=== PATIENT | female | born 1985 | race Caucasian/White ===

== ENCOUNTER → 2016-06-18 | Outpatient (CLI) | payer BC ==
[~2016-06-18] MED LIST: LEVO25TA5 PO; PREN1TAB29
[2016-06-18 16:33] LABS: HEMATOCRIT 32.2 % (37-47)
[2016-06-18 18:23] LABS: GTGD 50 Grams
[2016-06-18 18:24] LABS: URINE APPEARANCE CLEAR (CLEAR); URINE BILIRUBIN NEG (NEG); URINE COLOR YELLOW; URINE EPITHELIAL CELL AUTO 20-30 /lpf (0-5); URINE NITRITE NEG (NEG); UROBILINOGEN NEG (NEG)
[2016-06-18 18:26] LABS: MANUAL MICROSCOPIC REQUIRED? NO; REVIEW REQ? NO
== END | disposition home or self-care (01) ==
LOC: C.LAB1850 15:55
PROVIDERS: ATTEND Obstetrics & Gynecology
DX: Z34.02 Encounter for supervision of normal first pregnancy, second trimester (principal)

== ENCOUNTER → 2016-07-05 | Outpatient (CLI) | payer BC ==
[2016-07-05 19:07] LABS: THYROID STIMULATING HORMONE 1.34 uIu/ml (0.300-4.500)
== END | disposition home or self-care (01) ==
LOC: C.LAB1850 16:47
PROVIDERS: ATTEND Obstetrics & Gynecology
DX: O99.280 Endocrine, nutritional and metabolic diseases complicating pregnancy, unspecified trimester (principal); Z34.93 Encounter for supervision of normal pregnancy, unspecified, third trimester

== ENCOUNTER → 2016-08-15 | Outpatient (CLI) | payer BC | END | disposition home or self-care (01) | LOC: C.LABSPEC 17:30 | PROVIDERS: ATTEND Obstetrics & Gynecology | DX: Z34.93 Encounter for supervision of normal pregnancy, unspecified, third trimester (principal) ==

== ENCOUNTER 2016-09-04 00:45 | Inpatient (IN) | payer BC ==
[~2016-09-04] VITALS: Ht 167.6 cm; Wt 86.4 kg
[2016-09-04 01:33] VITALS: Ht 167.6 cm; Wt 86.4 kg
[2016-09-04] MEDS ORDERED: LEVO25TA5 PO (01:33)
[2016-09-04] MEDS ORDERED: PREN1TAB29 (01:33)
[2016-09-04] MEDS ORDERED: LACTATED RINGER'S 1000ML 1,000 ML IV ONE (04:14)
[2016-09-04] MEDS ORDERED: LACTATED RINGER'S 1000ML 1,000 ML IV PRN (07:04)
[2016-09-04] MEDS ORDERED: LACTATED RINGER'S 1000ML 1,000 ML IV SCH (07:04)
[2016-09-04 07:26] LABS: MEAN CELL VOLUME 87.4 fL (80-100); MEAN CORPUSCULAR HEMOGLOBIN 30.6 pg (25-34); MEAN PLATELET VOLUME 11.8 fL (7.4-10.4); PLATELET COUNT 132 K/uL (130-400); RED BLOOD COUNT 3.66 M/uL (4.2-5.4); WHITE BLOOD COUNT 13.11 K/uL (4.8-10.8)
[2016-09-04] MEDS ORDERED: EpHEDrine SULFATE INJ 50 MG/ML AMP ONE (07:28)
[2016-09-04] MEDS ORDERED: BUPIVACAINE 0.25% 30 ML VIAL ONE (07:28)
[2016-09-04] MEDS ORDERED: FENTANYL CITRATE INJ 50 MCG/1 ML 2 ML VIAL ONE (07:28)
[2016-09-04] MEDS ORDERED: FENTANYL 2MCG/ML ROPIV 1.25MG/ML 100ML BAG EPI ONE (07:29)
[2016-09-04] MEDS ORDERED: LACTATED RINGER'S 1000ML 500 ML IV PRN ×2 (08:13→08:25)
[2016-09-04] MEDS ORDERED: OXYTOCIN 30 UNITS/500ML NSS IV PRN ×2 (08:15→15:30)
--- NOTE | 2016-09-04 08:23 | Medical Student: [facility] ---
Med Student History & Physical Date of Service Sep 04, 2016. Chief Complaint "I think I'm in labor" History of Present Illness Source: patient Heather is a 31 year old with an EDC of 09/10/2016 dated by LMP, confirmed by first trimester ultrasound. was uncomplicated. She states that she was feeling intermittent contractions since 09/02/2016 but the contractions became consistent, every 10 minutes, beginning at 2000 last night. She arrived to L&D at 0030 today. She denies any fluid leakage or vaginal bleeding but reported some vaginal spotting beginning 09/02/16 that subsided in a few hours. She feels movement. This morning she states her contractions are every 4-6 minutes, 1 minute in duration and an 8/10 on the pain scale. OB History Labs from this : 01/25/2016: Urine Culture - negative UA: WNL 02/01/2016: Chlamydia and GC negative RPR non reactive HIV negative Type and screen: O+, negative antibodies Rubella Immune HBsAg Negative H&H = 34.7%, 11.9 g/dl MCV: 87.4 fl Plts: 199,000 TSH = 2.070 Free T4 = 1.16 mg/dl 03/30/2016: 50g 1 hour GTT = 100 mg/dl Free T4 = 1.09 mg/dL TSH = 1.550 06/18/2016: Urine Culture - neg UA - 1+ bacteria, otherwise WNL H&H: 32.2%, 11.2 g/dL 50g 1hr GTT = 116 mg/dL 07/05/2016: TSH = 1.340 Free T4 = 0.97 ng/dL 08/15/2016: GBS negative BEEF BREAKER History Menarche: 12 LMP: 12/05/15 Period Frequency: 26 day cycles STD: none Abnormal PAPs: none Past Medical History Subclinical hypothyroidism, otherwise unremarkable. She has had TSH levels checked yearly since she was 16 and her labs have always been upper limit of normal but her family physician placed her on levothyroxine 25 mcg after her positive test. Past Surgical History None. Family History Marcela Thyroiditis - Mother Diabetes - Father Breast cancer - Paternal Aunt Colon cancer - Paternal Grandmother Otherwise negative for gynecologic malignancies. Social History Smoking Status: Never Smoker Smokeless Tobacco Use: No Alcohol Use: none Drug Use: none Marital Status: Housing status: lives with significant other Occupational Status: employed (teacher) Allergies Coded Allergies: No Known Allergies (Unverified , 09/04/16) Home Medications Levothyroxine Sodium (Levothyroxine Sodium), 1 TAB PO DAILY Vit W/ Ferrous Fumara () Review of Systems Constitutional: No chills, No fever Eyes: No diplopia, No worsening of vision ENT: No sore throat, No trouble swallowing Respiratory: No cough, No shortness of breath Cardiovascular: No chest pain, No edema, No palpitations Abdomen: + pain (with contractions), No nausea, No vomiting Musculoskeletal: No calf pain, No joint pain Genitourinary - Female: + urinary frequency, No dysuria, No urinary urgency Neurologic: No numbness/tingling, No weakness Psychiatric: No anxiety, No depression symptoms Endocrine: + fatigue, No excessive thirst, No excessive urination Hematologic / Lymphatic: No abnormal bleeding/bruising, No clotting problems Integumentary: No new/changing skin lesions, No rash Allergic / Immunologic: No frequent infections, No poor healing Physical Exam Vital Signs: T: 36.7 HR: 86bpm BP: 118/63 mmHg RR: 18 General Appearance: WD/WN, no apparent distress Respiratory/Chest: lungs clear, normal breath sounds, no respiratory distress, no accessory muscle use Cardiovascular: regular rate, rhythm, no gallop, no murmur, normal peripheral pulses Abdomen / GI: non tender, + pertinent finding (gravid) Genitourinary - Female: + pertinent finding (Cervix: 4 cm dilated, 70% effaced , -2 station, soft and posterior) Extremities: no calf tenderness, + pedal edema (trace bilateral) Neurologic/Psych: alert, normal mood/affect, oriented x 3 Monitoring External Monitor: Category 1 tracing. Baseline FHR: 150 Moderate variability Accelerations to 165. No decelerations. Tocodynamometer: Contractions q 4-5 minutes, 70-110 seconds duration. Laboratory Results 09/04/16 07:15 Test 09/04/16 07:15 Red Blood Count 3.66 M/uL (4.2-5.4) Mean Corpuscular Volume 87.4 fL (80-100) Mean Corpuscular Hemoglobin 30.6 pg (25-34) Mean Corpuscular Hemoglobin Concent 35.0 g/dl (32-36) RDW Standard Deviation 45.0 fL (36.4-46.3) RDW Coefficient of Variation 14.0 % (11.5-14.5) Mean Platelet Volume 11.8 fL (7.4-10.4) Assessment and Plan Assessment: Patient is a 31 year old at 39 1/7 weeks gestation who presented to the floor in labor. Category 1 Fetus. Plan: Continuous external monitoring, recording every 30 minutes Continue tocodynamometer, recording every 30 minutes. Vital signs every hour. Consult anesthesia for epidural.
[2016-09-04] MEDS ORDERED: ONDANSETRON INJ 2 MG/ML 2 ML VIAL IV PRN (08:30)
[2016-09-04] MEDS ORDERED: DiphenhydrAMINE HCL 50 MG/ML VIAL IV PRN (08:30)
[2016-09-04] MEDS ORDERED: NALOXONE HCL INJ 0.4 MG/1 ML VIAL/CARP IV PRN (08:30)
[2016-09-04] MEDS ORDERED: NALBUPHINE HCL INJ 10 MG/ML AMP IV PRN (08:30)
[2016-09-04] MEDS ORDERED: FENTANYL 2MCG/ML ROPIV 1.25MG/ML 100ML BAG EPI PRN (08:30)
[2016-09-04] MEDS ORDERED: EpHEDrine SULFATE INJ 50 MG/ML AMP IV PRN (08:30)
[2016-09-04] MEDS ORDERED: CALCIUM CARBONATE 500 MG CHEWABLE PO PRN (11:15)
[2016-09-04] MEDS ORDERED: ACETAMINOPHEN/CODEINE 300/30MG TAB PO PRN ×2 (15:30)
[2016-09-04] MEDS ORDERED: LANOLIN OINT EXT PRN ×2 (15:30)
[2016-09-04] MEDS ORDERED: ACETAMINOPHEN 325 MG TAB PO PRN (15:30)
[2016-09-04] MEDS ORDERED: BENZOCAINE 20% AER SPR 82.5 GM CAN EXT PRN (15:30)
[2016-09-04] MEDS ORDERED: HYDROCORTISONE ACETATE 25 MG SUPP PR PRN (15:30)
[2016-09-04] MEDS ORDERED: DIPHTHERIA/TETANUS/PERTUSSIS 0.5 ML SYR/VIAL IM. ONE (15:30)
[2016-09-04] MEDS ORDERED: SUPERCREAM 0.870 % 15GM JAR EXT PRN (15:30)
--- NOTE | 2016-09-04 15:41 | Medical Student: [facility] ---
Medical Student Delivery Note PROCEDURE: Normal Spontaneous Vaginal Delivery SURGEON: Dr. Tang ANESTHESIA: Epidural EBL: 300cc FINDINGS:Viable female with APGARs of 8 and 9. Baby delivered in MIRIAM position over an second degree perineal laceration. Cord blood and gasses obtained. Placenta delivered spontaneously, intact, with a 3 vessel cord. Laceration repaired with 2-0 and 4-0 Vicryl in a routine fashion. LABOR NOTE: The patient is a 31-year-old 1 para 0 EDC of September 10 2016 at 39 weeks 1 day gestational age who presented to labor and delivery September 04 at 0100 in latent first stage labor. The patient states her contractions began earlier on the 03 of September and increased in intensity throughout the day. She denied rupture of membranes. She reports vaginal spotting beginning on the 02 of September but no other bleeding. The patient's course remarkable for hypothyroidism treated with levothyroxine 25 mcg. She received routine care. The patient's blood type is O positive, antibody negative, Rubella immune, hepatitis B negative. She declined a quad screen. She had a normal 1-hour Glucola x2 and a negative third trimester beta strep culture. Upon admission at 0100 the patient was 1 cm dilated, 75% effaced and -2 station. She progressed to active first stage labor with contractions. She received an epidural, had an amniotomy and progressed to full dilatation, 100 % effacement, +1 station and began her second stage of labor. Fetus was category 1. The patient pushed for a little over an hour delivering a viable female in MIRIAM position over a second degree perineal laceration. There was no nuchal cord. Infant as placed on maternal abdomen for drying. The nose and mouth were bulb suctioned. Cord clamping was delayed 60 seconds. Cord was then clamped and cut. Cord blood samples were obtained. Placenta was delivered spontaneously, intact with 3 vessel cord. Inspection of the perineum showed second degree perineal laceration. This was repaired with 2-0 vicryl and 4-0 Vicryl suture. Estimated blood loss 300 cc. Sponge and needle count was correct. Cord gasses obtained. Mother and baby doing well at the end of delivery. Apgars 8 and 9. Weight pending.
[2016-09-04] MEDS: IBUPROFEN 600 MG TAB PO PRN (15:48)
--- NOTE | 2016-09-04 16:29 | DELIVERY SUMMARY ---
DATE OF OPERATION: 09/04/2016 FINDINGS: Viable female with Apgars of 8 and 9. Baby delivered spontaneously over midline second degree laceration. Cord gases and cord blood samples were obtained. Placenta delivered spontaneously. Laceration repair with 4-0 and 2-0 Vicryl in a routine fashion. ESTIMATED BLOOD LOSS: 300 mL. LABOR NOTE: The patient is a 31-year-old 1, para 0 at 39+ weeks gestational age who presented to labor and delivery on the day of admission in early labor. The patient was observed on labor and delivery with cervical change and was admitted. The patient had had a benign course. Upon admission the patient was 3 cm dilated, with a category 2 tracing and anesthesia was consulted. An epidural was placed. Shortly thereafter the delivering physician assumed care for the patient. At that time the patient was 4 cm dilated, 100%, and -1 station. Artificial rupture of membranes for clear fluid. Over the next 2 hours, the patient made minimal cervical change and as such Pitocin was initiated per induction protocol, an intrauterine pressure catheter was also placed to monitor contractions. The patient progressed to full dilatation and began her second stage, she pushed for about an hour and a half delivering a viable female infant. Cord was clamped and cut. Cord gases, cord blood samples obtained. Placenta delivered spontaneously. Midline laceration was repaired with 4-0 and 2-0 Vicryl in a routine fashion. Estimated blood loss was 300 mL. Sponge and needle counts were correct. I attest to the content of the Intraoperative Record and any orders documented therein. Any exceptio ns are noted below.
--- NOTE | 2016-09-04 17:30 | Anesthesia Procedure Note ---
Anesthesia Epidural Removal Nt Date & Time Sep 04, 2016 at 17:29 Vital Signs Pain Intensity: 4.0 Notes Mental Status: alert / awake / arousable, participated in evaluation Nausea / Vomiting: adequately controlled Pain: adequately controlled Airway Patency, RR, SpO2: stable & adequate BP & HR: stable & adequate Hydration State: stable & adequate Neuraxial Anesthesia: was administered Anesthetic Complications: no major complications apparent, pt satisfied with anesthetic care Epidural: removed without complications, with tip intact
[2016-09-04] MEDS: LOPERAMIDE HCL 2 MG CAP PO PRN (17:39)
[2016-09-04 19:45] VITALS: BP 108/71; PULSE 66; TEMP 36.6
[2016-09-04] MEDS: DOCUSATE SODIUM 100 MG CAP PO SCH (20:33)
[2016-09-05 00:10] VITALS: BP 120/79; PULSE 76; TEMP 36.4
[2016-09-05 04:05] VITALS: BP 98/64; PULSE 73; TEMP 36.6
--- NOTE | 2016-09-05 06:57 | Medical Student: [facility] ---
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 Subjective conversation w/ patient Ambulation: ambulating normally Voiding: no voiding problems Passing Gas: Yes Diet Tolerance: Regular Diet Lochia: Moderate Feeding Type: Breast Feeding Pain: 4/10, controlled with medication Notes: No acute events overnight. Review of Systems Constitutional: No chills, No fever Respiratory: No cough, No shortness of breath Cardiac: No chest pain, No edema, No palpitations Breast: No breast pain, No problem reported Abdomen: + diarrhea, + pain (mild), No nausea, No vomiting Female : No dysuria, No urinary frequency Objective Vital Signs Date Time Temp Pulse Resp B/P Pulse Ox O2 Delivery O2 Flow Rate FiO2 09/05/16 04:05 36.6 73 16 98/64 Room Air 09/05/16 00:10 36.4 76 16 120/79 Room Air 09/05/16 00:10 Room Air 09/04/16 19:45 36.6 66 16 108/71 Room Air Physical Exam General Appearance: WELL-APPEARING, NO APPARENT DISTRESS Respiratory/Chest: normal breath sounds, no respiratory distress, no accessory muscle use Cardiovascular: regular rate, rhythm, no edema, no gallop, no murmur Abdomen: normal bowel sounds, non tender, soft Fundus: Firm, Tender, Relation to Umbilicus (at umbilicus) Extremities: non-tender, no calf tenderness, + pedal edema (bilateral, trace, improving) Laboratory Results Last 24 Hours Test 09/04/16 07:15 09/05/16 04:44 White Blood Count 13.11 K/uL Red Blood Count 3.66 M/uL Hemoglobin 11.2 g/dL Hematocrit 32.0 % Mean Corpuscular Volume 87.4 fL Mean Corpuscular Hemoglobin 30.6 pg Mean Corpuscular Hemoglobin Concent 35.0 g/dl RDW Standard Deviation 45.0 fL RDW Coefficient of Variation 14.0 % Platelet Count 132 K/uL Mean Platelet Volume 11.8 fL Medications Current Inpatient Medications Medications (Trade) Dose Ordered Sig/Hilda Route Start Time Stop Time Status Last Admin Dose Admin Lactated Ringer's 1,000 ml @ 125 mls/hr Q8H IV 09/04/16 07:04 09/06/16 07:03 Lactated Ringer's (Lr 1000ml) 1,000 ml @ 999 mls/hr Q1H1M PRN IV 09/04/16 07:04 10/04/16 07:03 09/04/16 07:20 999 MLS/HR Oxytocin 30 units 30 units UD PRN IV 09/04/16 08:15 10/04/16 08:14 09/04/16 08:57 30 UNITS Lactated Ringer's (Lr 1000ml) 500 ml @ 999 mls/hr Q31M PRN IV 09/04/16 08:13 10/04/16 08:12 Fentanyl/ Ropivacaine (Fentanyl 2MCG/ Ml/Ropivacaine 1.25MG/ML) 100 ml PRN PRN EPI 09/04/16 08:30 09/05/16 08:29 Naloxone HCl 0.1 mg 0.1 mg UD PRN IV 09/04/16 08:30 09/05/16 08:29 Lactated Ringer's (Lr 1000ml) 500 ml @ 999 mls/hr Q31M PRN IV 09/04/16 08:25 09/05/16 08:24 Ephedrine Sulfate (EpHEDrine SULFATE INJ) 10 mg Q5M PRN IV 09/04/16 08:30 09/05/16 08:29 Diphenhydramine HCl (Benadryl Inj) 25 mg Q6H PRN IV 09/04/16 08:30 09/05/16 08:29 Nalbuphine HCl (Nubain Inj) 5 mg Q10M PRN IV 09/04/16 08:30 09/05/16 08:29 Ondansetron HCl (Zofran Inj) 4 mg Q6H PRN IV 09/04/16 08:30 09/05/16 08:29 Calcium Carbonate (Tums Chew Tab) 500 mg Q4H PRN PO 09/04/16 11:15 10/04/16 11:14 09/04/16 12:21 500 MG Levothyroxine Sodium (Synthroid Tab) 25 mcg DAILYBB PO 09/05/16 07:30 10/05/16 07:29 Oxytocin (Pitocin IV) 30 units UD PRN IV 09/04/16 15:30 10/04/16 15:29 Benzocaine (Dermoplast Aero Spr) 1 appln PRN PRN EXT 09/04/16 15:30 10/04/16 15:29 Cocaine HCl (Supercream 0.870% Cr) BID PRN EXT 09/04/16 15:30 09/18/16 15:29 Hydrocortisone Acetate (Anusol Hc Supp) 25 mg BID PRN MA 09/04/16 15:30 10/04/16 15:29 Lanolin (Lanolin Oint) PRN PRN EXT 09/04/16 15:30 10/04/16 15:29 Prenat Multivit/ [employer] Manager/Iron/Folic Ac ( Vitamin Tab) 1 tab DAILY PO 09/05/16 08:00 10/05/16 07:59 Ibuprofen (Motrin Tab) 600 mg Q4H PRN PO 09/04/16 15:30 10/04/16 15:29 09/04/16 15:48 600 MG Acetaminophen (Tylenol Tab) 650 mg Q6H PRN PO 09/04/16 15:30 10/04/16 15:29 Acetaminophen/ Codeine Phosphate (Tylenol w/ Codeine #3 Tab) 1 tab Q4H PRN PO 09/04/16 15:30 10/04/16 15:29 Acetaminophen/ Codeine Phosphate (Tylenol w/ Codeine #3 Tab) 2 tab Q4H PRN PO 09/04/16 15:30 10/04/16 15:29 Bisacodyl (Dulcolax Tab) 5 mg 20 PO 09/05/16 20:00 09/05/16 20:01 Docusate Sodium (coLACE CAP) 100 mg BID PO 09/04/16 20:00 10/04/16 19:59 Ferrous Sulfate (Feosol Tab) 325 mg DAILY PO 09/05/16 08:00 10/05/16 07:59 Loperamide HCl (Imodium Cap) 2 mg Q4H PRN PO 09/04/16 17:15 10/04/16 17:14 09/04/16 17:39 2 MG Assessment and Plan Post- Day Number: 1 Continue Routine Care: ASSESSMENT: Heather is a 31 year old day 1 s/p at 39 1/7 weeks. She is blood type O+, GBS negative and Rubella immune. She is doing well clinically. PLAN: Continue Routine care. Encourage ambulation as tolerated. Continue regular diet. Encourage and educate about . Monitor lochia. Pain medication as needed.
--- NOTE | 2016-09-05 07:04 | Progress Note ---
Subjective Sep 05, 2016. Subjective conversation w/ patient, physical exam Ambulation: ambulating normally Voiding: no voiding problems Passing Gas: Yes Diet Tolerance: Regular Diet Lochia: Moderate Pain: 4/10 improves with medication Comment: Patient was seen at the bedside. No acute event overnight. Review of Systems Constitutional: No fever Respiratory: No cough, No shortness of breath Cardiac: No chest pain Abdomen: + diarrhea, No nausea, No pain, No vomiting Female : No dysuria denies headache Objective Vital Signs Date Time Temp Pulse Resp B/P Pulse Ox O2 Delivery O2 Flow Rate FiO2 09/05/16 04:05 36.6 73 16 98/64 Room Air 09/05/16 00:10 36.4 76 16 120/79 Room Air 09/05/16 00:10 Room Air 09/04/16 19:45 36.6 66 16 108/71 Room Air Physical Exam General Appearance: WELL-APPEARING, WD/WN Respiratory/Chest: chest non-tender, lungs clear, normal breath sounds Cardiovascular: regular rate, rhythm Abdomen: normal bowel sounds, non tender, soft Fundus: Firm, Relation to Umbilicus (at the umbilicus) Extremities: non-tender, no calf tenderness, + pedal edema (noted b/l edema, improving ) Laboratory Results Last 24 Hours Test 09/04/16 07:15 09/05/16 04:44 White Blood Count 13.11 K/uL Red Blood Count 3.66 M/uL Hemoglobin 11.2 g/dL Hematocrit 32.0 % Mean Corpuscular Volume 87.4 fL Mean Corpuscular Hemoglobin 30.6 pg Mean Corpuscular Hemoglobin Concent 35.0 g/dl RDW Standard Deviation 45.0 fL RDW Coefficient of Variation 14.0 % Platelet Count 132 K/uL Mean Platelet Volume 11.8 fL Medications Current Inpatient Medications Medications (Trade) Dose Ordered Sig/Hilda Route Start Time Stop Time Status Last Admin Dose Admin Lactated Ringer's 1,000 ml @ 125 mls/hr Q8H IV 09/04/16 07:04 09/06/16 07:03 Lactated Ringer's (Lr 1000ml) 1,000 ml @ 999 mls/hr Q1H1M PRN IV 09/04/16 07:04 10/04/16 07:03 09/04/16 07:20 999 MLS/HR Oxytocin 30 units 30 units UD PRN IV 09/04/16 08:15 10/04/16 08:14 09/04/16 08:57 30 UNITS Lactated Ringer's (Lr 1000ml) 500 ml @ 999 mls/hr Q31M PRN IV 09/04/16 08:13 10/04/16 08:12 Fentanyl/ Ropivacaine (Fentanyl 2MCG/ Ml/Ropivacaine 1.25MG/ML) 100 ml PRN PRN EPI 09/04/16 08:30 09/05/16 08:29 Naloxone HCl 0.1 mg 0.1 mg UD PRN IV 09/04/16 08:30 09/05/16 08:29 Lactated Ringer's (Lr 1000ml) 500 ml @ 999 mls/hr Q31M PRN IV 09/04/16 08:25 09/05/16 08:24 Ephedrine Sulfate (EpHEDrine SULFATE INJ) 10 mg Q5M PRN IV 09/04/16 08:30 09/05/16 08:29 Diphenhydramine HCl (Benadryl Inj) 25 mg Q6H PRN IV 09/04/16 08:30 09/05/16 08:29 Nalbuphine HCl (Nubain Inj) 5 mg Q10M PRN IV 09/04/16 08:30 09/05/16 08:29 Ondansetron HCl (Zofran Inj) 4 mg Q6H PRN IV 09/04/16 08:30 09/05/16 08:29 Calcium Carbonate (Tums Chew Tab) 500 mg Q4H PRN PO 09/04/16 11:15 10/04/16 11:14 09/04/16 12:21 500 MG Levothyroxine Sodium (Synthroid Tab) 25 mcg DAILYBB PO 09/05/16 07:30 10/05/16 07:29 Oxytocin (Pitocin IV) 30 units UD PRN IV 09/04/16 15:30 10/04/16 15:29 Benzocaine (Dermoplast Aero Spr) 1 appln PRN PRN EXT 09/04/16 15:30 10/04/16 15:29 Cocaine HCl (Supercream 0.870% Cr) BID PRN EXT 09/04/16 15:30 09/18/16 15:29 Hydrocortisone Acetate (Anusol Hc Supp) 25 mg BID PRN [place] 09/04/16 15:30 10/04/16 15:29 Lanolin (Lanolin Oint) PRN PRN EXT 09/04/16 15:30 10/04/16 15:29 Prenat Multivit/ [place]/Iron/Folic Ac ( Vitamin Tab) 1 tab DAILY PO 09/05/16 08:00 10/05/16 07:59 Ibuprofen (Motrin Tab) 600 mg Q4H PRN PO 09/04/16 15:30 10/04/16 15:29 09/04/16 15:48 600 MG Acetaminophen (Tylenol Tab) 650 mg Q6H PRN PO 09/04/16 15:30 10/04/16 15:29 Acetaminophen/ Codeine Phosphate (Tylenol w/ Codeine #3 Tab) 1 tab Q4H PRN PO 09/04/16 15:30 10/04/16 15:29 Acetaminophen/ Codeine Phosphate (Tylenol w/ Codeine #3 Tab) 2 tab Q4H PRN PO 09/04/16 15:30 10/04/16 15:29 Bisacodyl (Dulcolax Tab) 5 mg 20 PO 09/05/16 20:00 09/05/16 20:01 Docusate Sodium (coLACE CAP) 100 mg BID PO 09/04/16 20:00 10/04/16 19:59 Ferrous Sulfate (Feosol Tab) 325 mg DAILY PO 09/05/16 08:00 10/05/16 07:59 Loperamide HCl (Imodium Cap) 2 mg Q4H PRN PO 09/04/16 17:15 10/04/16 17:14 09/04/16 17:39 2 MG Assessment and Plan Post- Day#: 1 Continue Routine Care: A/P: This is a 31 y/o female, , s/p normal vaginal delivery. She is ambulating and clinically stable. Plan: - Vitals signs are reviewed and WNL (Tmax 36.6 ) - Last Hgb is 11.2 - Blood type O+, GBS neg, Rubella Immune - Routine care - Encourage ambulation, monitor and control pain with medication as needed , continue with regular diet as tolerated and monitor lochia - Sitz bath recommended - Encourage breast feeding and educate about breast feeding Resident Physician Supervision Note: I interviewed and examined the patient. Discussed with Dr. Martinez and agree with findings and plan as documented in the note. Any exceptions or clarifications are listed here: [None] Documented By: Claude Tang
[2016-09-05 07:28] LABS: HEMATOCRIT 31.6 % (37-47)
[2016-09-05] MEDS: LEVOTHYROXINE 25 MCG TAB PO SCH (07:30)
[2016-09-05 08:00] VITALS: BP 110/77; PULSE 64; TEMP 36.6
[2016-09-05] MEDS: IBUPROFEN 600 MG TAB PO PRN ×3 (08:37→18:05)
[2016-09-05] MEDS: LOPERAMIDE HCL 2 MG CAP PO PRN ×2 (08:37→12:55)
[2016-09-05] MEDS: FERROUS SULFATE 325 MG TAB PO SCH (08:37)
[2016-09-05] MEDS: PRENATAL VITAMIN TAB PO SCH (08:37)
[2016-09-05] MEDS: DOCUSATE SODIUM 100 MG CAP PO SCH ×2 (09:10→20:00)
[2016-09-05 11:30] VITALS: BP 107/71; PULSE 60; TEMP 36.4; O2SAT 97
[2016-09-05 15:42] VITALS: BP 112/75; PULSE 71; TEMP 36.6
[2016-09-05] MEDS ORDERED: BISACODYL 5 MG TABEC PO SCH (20:00)
[2016-09-06 00:15] VITALS: BP 119/73; PULSE 63; TEMP 36.6; O2SAT 97
[2016-09-06] MEDS: IBUPROFEN 600 MG TAB PO PRN ×2 (00:27→07:44)
--- NOTE | 2016-09-06 07:19 | Progress Note ---
Subjective Sep 06, 2016. Subjective conversation w/ patient, physical exam, lab review Ambulation: ambulating normally Voiding: no voiding problems Passing Gas: Yes Diet Tolerance: Regular Diet Lochia: Moderate Feeding Type: Breast Feeding Pain: 3/10 improves with medication Comment: Patient was seen at the bedside. No acute event overnight. Review of Systems Constitutional: No fever Respiratory: No cough, No shortness of breath Cardiac: No chest pain Breast: No breast lump Abdomen: + diarrhea, No nausea, No pain, No vomiting Female : No dysuria denies headache Objective Vital Signs Date Time Temp Pulse Resp B/P Pulse Ox O2 Delivery O2 Flow Rate FiO2 09/06/16 00:15 36.6 63 16 119/73 97 Room Air 09/06/16 00:15 97 Room Air 09/05/16 15:42 36.6 71 18 112/75 Room Air 09/05/16 15:40 Room Air 09/05/16 11:30 36.4 60 18 107/71 97 Room Air 09/05/16 08:40 Room Air 09/05/16 08:00 36.6 64 18 110/77 Room Air Physical Exam General Appearance: WELL-APPEARING, WD/WN Respiratory/Chest: chest non-tender, lungs clear, normal breath sounds Cardiovascular: regular rate, rhythm Abdomen: normal bowel sounds, non tender, soft Fundus: Firm, Relation to Umbilicus (1cm below) Extremities: non-tender, no pedal edema, no calf tenderness Medications Current Inpatient Medications Medications (Trade) Dose Ordered Sig/Hilda Route Start Time Stop Time Status Last Admin Dose Admin Lactated Ringer's (Lr 1000ml) 1,000 ml @ 999 mls/hr Q1H1M PRN IV 09/04/16 07:04 10/04/16 07:03 09/04/16 07:20 999 MLS/HR Oxytocin 30 units 30 units UD PRN IV 09/04/16 08:15 10/04/16 08:14 09/04/16 08:57 30 UNITS Lactated Ringer's (Lr 1000ml) 500 ml @ 999 mls/hr Q31M PRN IV 09/04/16 08:13 10/04/16 08:12 Calcium Carbonate (Tums Chew Tab) 500 mg Q4H PRN PO 09/04/16 11:15 10/04/16 11:14 09/04/16 12:21 500 MG Levothyroxine Sodium (Synthroid Tab) 25 mcg DAILYBB PO 09/05/16 07:30 10/05/16 07:29 09/05/16 07:30 25 MCG Oxytocin (Pitocin IV) 30 units UD PRN IV 09/04/16 15:30 10/04/16 15:29 Benzocaine (Dermoplast Aero Spr) 1 appln PRN PRN EXT 09/04/16 15:30 10/04/16 15:29 Cocaine HCl (Supercream 0.870% Cr) BID PRN EXT 09/04/16 15:30 09/18/16 15:29 09/05/16 09:12 15 GM Hydrocortisone Acetate (Anusol Hc Supp) 25 mg BID PRN MO 09/04/16 15:30 10/04/16 15:29 Lanolin (Lanolin Oint) PRN PRN EXT 09/04/16 15:30 10/04/16 15:29 Prenat Multivit/ [place]/Iron/Folic Ac ( Vitamin Tab) 1 tab DAILY PO 09/05/16 08:00 10/05/16 07:59 09/05/16 08:37 1 TAB Ibuprofen (Motrin Tab) 600 mg Q4H PRN PO 09/04/16 15:30 10/04/16 15:29 09/06/16 00:27 600 MG Acetaminophen (Tylenol Tab) 650 mg Q6H PRN PO 09/04/16 15:30 10/04/16 15:29 Acetaminophen/ Codeine Phosphate (Tylenol w/ Codeine #3 Tab) 1 tab Q4H PRN PO 09/04/16 15:30 10/04/16 15:29 Acetaminophen/ Codeine Phosphate (Tylenol w/ Codeine #3 Tab) 2 tab Q4H PRN PO 09/04/16 15:30 10/04/16 15:29 Docusate Sodium (coLACE CAP) 100 mg BID PO 09/04/16 20:00 10/04/16 19:59 Ferrous Sulfate (Feosol Tab) 325 mg DAILY PO 09/05/16 08:00 10/05/16 07:59 09/05/16 08:37 325 MG Loperamide HCl (Imodium Cap) 2 mg Q4H PRN PO 09/04/16 17:15 10/04/16 17:14 09/05/16 12:55 2 MG Assessment and Plan Post- Day#: 2 Continue Routine Care: A/P: This is a 31 y/o female, , s/p normal vaginal delivery. She is ambulating and clinically stable to discharge. - Vital signs are reviewed and WNL (Tmax 36.6 ) - Last Hgb 10.5 - Blood type O+, GBS neg, Rubella Immune - No signs of depression. - Routine care - Discussed resting, feeding, pain control, mastitis, control, follow up in 6 weeks and reasons to call sooner, if necessary. - Continue with pain medication as needed, and continue vitamins. - Encourage breast feeding and educate about breast feeding - Patient understands and keen for home. - Plan to discharge home Resident Physician Supervision Note: I interviewed and examined the patient. Discussed with and agree with findings and plan as documented in the note. Any exceptions or clarifications are listed here: Heather continues to have diarrhea if she doesnt take immodium. we will get stool cultures, ova& parasites prior to discharge. Documented By: Halima Burden ACTIVITY RECOMMENDATIONS: * Gradual return to full activity over the next 2-3 weeks. * No lifting - nothing heavier than baby over the next 2-3 weeks. * Do not engage in vigorous exercise, sexual activity or sports until cleared by your physician. * Do not drive or operate any motorized equipment until cleared by your physician. * You may shower/bathe daily. MEDICATIONS: For discomfort or pain, you may use Acetaminophen (Tylenol), Ibuprofen (Advil), or Naproxen (Aleve) following the package directions. For constipation you may use Colace following the package directions. BREAST CARE: If you are not breast feeding: * Wear a supportive bra 24 hours a day for one to two weeks. * Avoid stimulating your breasts and nipples as much as possible during the first few weeks after delivery. * When taking a shower, have the warm water hit your back, not breasts. * When your breasts feel full, apply ice packs. Usually three to four times a day helps ease the discomfort. * Take a mild pain medication (Tylenol / Motrin) when you are uncomfortable. If breast feeding: * Use breast milk to lubricate nipples. Lansinoh cream may be used for sore nipples. You do not need to remove cream prior to breast feeding. If using a different brand of cream, check the label for directions regarding removal of cream prior to nursing. * Wear a supportive bra. * If having problems with breasts or breast feeding, call a [facility] consultant or your health care provider. EPISIOTOMY CARE: After delivery, if you have an episiotomy (stitches), the following steps will ease discomfort and aid healing. * For the first 24 hours after delivery, place ice packs next to your episiotomy to help reduce swelling. * After the first 24 hour-period, sitz baths, either portable or in the tub, are suggested. A shower with a shower arm sprayed over the episiotomy may be comforting. * Melissa care should be done after each voiding and bowel movement. Squirt warm water from a plastic bottle over the perineum (region of the body between the anus and urinary opening) and pat dry. * Use Dermoplast to ease discomfort. Shake container. Yoder directly over the episiotomy. Place a Tucks on a clean sanitary pad next to your episiotomy. SPECIAL CARE INSTRUCTIONS: When you are discharged from the hospital, it is important for you to follow the instructions listed below: * During the first week at home, you should be able to care for yourself and your baby. In addition, the usual light household activities are encouraged. * Limit your activities to the way you feel. Do not try to clean the house or move furniture. Be sensible. * If you actively engage in sports and have done so up until the time of your delivery, you may resume these activities as soon as you feel able. This may take up to one month or even longer. Use good judgment. * Continue to take your vitamins for at least six weeks after the of your baby. * Your diet need not be limited unless you were on a special diet before your delivery. Breast-feeding mothers need around 2500 calories per day and at least 64-80 ounces of fluid per day (8 to 10 glasses). * You should eat foods from the four major food groups. Crash diets or fad diets are to be avoided. Eating lean meats, fresh fruits and vegetables, low-fat dairy products, high fiber foods and a regular exercise program, will help you get back to your pre- weight without putting your health at risk. * Constipation is sometimes a problem after delivery. Take a mild laxative as needed. If breast feeding, Milk of Magnesia is acceptable to use. You may use a suppository or Fleets enema if no episiotomy. * A daily shower or tub bath is suggested. Be sure to thoroughly and gently dry the perineum. * A bloody vaginal discharge will usually continue until around four weeks post . A small amount of bleeding may continue for as long as six weeks. Vaginal discharge changes from the bright red bleeding after delivery to pink then brownish and finally yellowish-pink before becoming white and disappearing. * Bleeding may increase with activity. Your first period may come in 4-8 weeks. If you are breast feeding, your period may be delayed even longer. * [place] (sex) can begin whenever both you and your partner feel comfortable and do not have any form of genital infection. It is recommended that you wait at least six weeks for internal and external healing to occur. If you have questions, please talk to your health care practitioner. A condom should be used to prevent infection and . * Foreplay, gentle intercourse and lubrication is very important the first several times to prevent pain. A water-based lubricant such as K-Y jelly or Astroglide may be used. * If you have RH negative blood and your baby is RH positive, you will receive RHOGAM by injection prior to discharge. The nurse will give you a card to keep with you that has the date and place that you received RHOGAM after delivery. * During your care, you had a Rubella screen done to check for the presence of rubella antibodies in your blood. If your test was negative, you will receive a Rubella vaccine prior to discharge. This vaccine may cause a fever, soreness at the injection site and flu-like symptoms. If these symptoms persist, notify your health care practitioner. is not advised for one month after a Rubella vaccine. * Verbalizes understanding of car seat law as reviewed with patient nursing. * Car Seat hand-out given and reviewed with patient by nursing. * Shaken baby information reviewed with patient by nursing. Call you doctor if: * Heavy bleeding (saturating several pads an hour) or passing clots the size of your fist. * A fever >101 degrees F (38.3 degrees C) on two occasions four hours apart and /or chills. * Unusual pain in the pelvic or vaginal areas. * "Baby Blues" lasting longer than two weeks. If you have any questions or concerns, call your health care practitioner at . FOLLOW UP VISIT: * Please call the office at to schedule a 6 week examination. It is important you keep this appointment. It is important for you to make arrangements for either yearly or twice yearly check-ups thereafter.
[2016-09-06 07:30] VITALS: BP 115/73; PULSE 66; TEMP 36.6; O2SAT 98
[2016-09-06] MEDS: FERROUS SULFATE 325 MG TAB PO SCH (07:43)
[2016-09-06] MEDS: PRENATAL VITAMIN TAB PO SCH (07:43)
[2016-09-06] MEDS: LOPERAMIDE HCL 2 MG CAP PO PRN (07:43)
[2016-09-06] MEDS: LEVOTHYROXINE 25 MCG TAB PO SCH (07:45)
[2016-09-06] MEDS: DOCUSATE SODIUM 100 MG CAP PO SCH (07:46)
[2016-09-06] MEDS ORDERED: BISMUTH SUBSALICYLATE SUSP PO PRN (10:00)
[2016-09-06 11:55] VITALS: BP_DIAS 73; PULSE 66; TEMP 36.6
[2016-09-11 15:15] LABS: O&P SOURCE OTHER-STOOL
== END 2016-09-06 12:05 | disposition home or self-care (01) | DRG 775 ==
LOC: C.LD 00:45 → C.OPB 00:45 → C.LD 07:05 → C.OBG 18:04
PROVIDERS: ADMIT Obstetrics & Gynecology; ATTEND Obstetrics & Gynecology
PROC: 10E0XZZ Delivery of Products of Conception, External Approach (ICD-10-PCS; principal; 2016-09-04)
PROC: 0KQM0ZZ Repair Perineum Muscle, Open Approach (ICD-10-PCS; principal; 2016-09-04)
DX: O70.1 Second degree perineal laceration during delivery (principal); Z3A.39 39 weeks gestation of pregnancy; Z37.0 Single live birth; R19.7 Diarrhea, unspecified

== ENCOUNTER → 2017-12-20 | Outpatient (CLI) | payer BC | END | disposition home or self-care (01) | LOC: C.PAPS 17:09 | PROVIDERS: ATTEND Obstetrics & Gynecology | DX: Z01.411 Encounter for gynecological examination (general) (routine) with abnormal findings (principal); R87.610 Atypical squamous cells of undetermined significance on cytologic smear of cervix (ASC-US) ==